=== PATIENT | female | born 1955 | race Caucasian/White ===

== ENCOUNTER 2020-07-07 13:43 | Outpatient (CLI) | payer OTHER | END 2020-07-07 13:44 | disposition home or self-care (01) | LOC: CSHULT 13:43 | PROVIDERS: ATTEND Otolaryngology Plastic Surgery within the Head & Neck | DX: E04.1 Nontoxic single thyroid nodule (principal) | CPT/HCPCS: 76536 ==

== ENCOUNTER 2021-05-27 10:17 | Outpatient (CLI) | payer BC | END 2021-05-27 10:18 | disposition home or self-care (01) | LOC: CSHMAMMO 10:17 | PROVIDERS: ATTEND Internal Medicine | DX: Z12.31 Encounter for screening mammogram for malignant neoplasm of breast (principal); Z80.3 Family history of malignant neoplasm of breast | CPT/HCPCS: 77063; 77067 ==

== ENCOUNTER 2021-07-05 06:37 | Day surgery (SDC) | payer BC ==
[2021-06-29 16:03] VITALS: BMI 38.9
[2021-07-05] MEDS ORDERED: Lidocaine 1% MPF 2 ML VIAL ONE (06:53)
[2021-07-05] MEDS ORDERED: PROPOFOL 40 ML ONE (07:04)
[2021-07-05] MEDS ORDERED: Lidocaine 1% PF 5 ML VIAL ONE (07:04)
[2021-07-05] MEDS ORDERED: PROPOFOL 20 ML ONE (09:05)
== END 2021-07-05 09:47 | disposition home or self-care (01) ==
LOC: CSHSDC 06:37
PROVIDERS: ATTEND Internal Medicine Gastroenterology
DX: K31.9 Disease of stomach and duodenum, unspecified (principal); K44.9 Diaphragmatic hernia without obstruction or gangrene; K29.70 Gastritis, unspecified, without bleeding; K31.7 Polyp of stomach and duodenum; K25.9 Gastric ulcer, unspecified as acute or chronic, without hemorrhage or perforation; D64.9 Anemia, unspecified; Z80.0 Family history of malignant neoplasm of digestive organs; K64.4 Residual hemorrhoidal skin tags; E66.9 Obesity, unspecified; I10 Essential (primary) hypertension; K21.9 Gastro-esophageal reflux disease without esophagitis; I48.91 Unspecified atrial fibrillation; E78.5 Hyperlipidemia, unspecified; F41.9 Anxiety disorder, unspecified; G47.30 Sleep apnea, unspecified; M19.90 Unspecified osteoarthritis, unspecified site; Z79.01 Long term (current) use of anticoagulants; Z79.899 Other long term (current) drug therapy; Z88.8 Allergy status to other drugs, medicaments and biological substances; Z68.39 Body mass index [BMI] 39.0-39.9, adult
CPT/HCPCS: 88305; J2704